=== PATIENT | female | born 1990 | race Two or more races ===

== ENCOUNTER 2018-09-29 12:02 | Emergency (ER) | payer OTHER ==
[~2018-09-29] VITALS: Ht 165.1 cm; Wt 51.3 kg
[~2018-09-29 12:02] MED LIST: AMOX1TAB12 PO; CIPRO500 MG PO; PYRIDIUM200 MG PO; ZITHROMAX500 MG; [UNRECOGNIZED DRUG - OTHER]
== END 2018-09-29 15:50 | disposition home or self-care (01) ==
LOC: ER 12:02
DX: M54.5 Low back pain (principal)

== ENCOUNTER 2019-07-30 17:21 | Emergency (ER) | payer OTHER ==
[~2019-07-30] VITALS: Ht 165.1 cm; Wt 53.5 kg
== END 2019-07-30 23:06 | disposition home or self-care (01) ==
LOC: ER 17:21
DX: J06.9 Acute upper respiratory infection, unspecified (principal)